=== PATIENT | female | born 1995 | race Caucasian/White ===

== ENCOUNTER 2019-01-13 16:37 | Inpatient (IN) | payer OTHER ==
[~2019-01-13] VITALS: Ht 175.3 cm; Wt 107.0 kg
[~2019-01-13 16:37] MED LIST: PERCOCET 5/3251 TAB PO
[2019-01-13] MEDS ORDERED: PRENATAL TABLE1 EAC1 PO (16:44)
[2019-01-13] MEDS ORDERED: ASA81 MG PO (16:44)
[2019-01-13] MEDS ORDERED: IRON325 MG PO (16:45)
[2019-01-15] MEDS ORDERED: ZITHROMAX500 MG PO (18:58)
== END 2019-01-15 19:06 | disposition home or self-care (01) | DRG 832 ==
LOC: OBS/DEL 16:37 → LDR 18:22
PROVIDERS: ADMIT Obstetrics & Gynecology
PROC: 4A033R1 Measurement of Arterial Saturation, Peripheral, Percutaneous Approach (ICD-10-PCS; principal; 2019-01-13)
PROC: 4A1HXCZ Monitoring of Products of Conception, Cardiac Rate, External Approach (ICD-10-PCS; 2019-01-13)
PROC: BY4FZZZ Ultrasonography of Third Trimester, Single Fetus (ICD-10-PCS; 2019-01-14)
DX: O99.513 Diseases of the respiratory system complicating pregnancy, third trimester (principal); O98.813 Other maternal infectious and parasitic diseases complicating pregnancy, third trimester; O60.03 Preterm labor without delivery, third trimester; B96.0 Mycoplasma pneumoniae [M. pneumoniae] as the cause of diseases classified elsewhere; O26.853 Spotting complicating pregnancy, third trimester; O36.80X1 Pregnancy with inconclusive fetal viability, fetus 1; J06.9 Acute upper respiratory infection, unspecified

== ENCOUNTER 2019-03-05 12:00 | Inpatient (IN) | payer OTHER ==
[~2019-03-05] VITALS: Ht 175.3 cm; Wt 113.4 kg
[~2019-03-05 12:00] MED LIST changes: +ASA81 MG PO; +IRON325 MG PO; +PRENATAL TABLE1 EAC1 PO; +ZITHROMAX500 MG PO
== END 2019-03-08 18:12 | disposition home or self-care (01) | DRG 784 ==
LOC: OB/GYN 12:00 → LDR 12:00 → OB/GYN 18:08
PROVIDERS: ADMIT Obstetrics & Gynecology
PROC: 0UB70ZZ Excision of Bilateral Fallopian Tubes, Open Approach (ICD-10-PCS; 2019-03-05)
PROC: 4A1HXCZ Monitoring of Products of Conception, Cardiac Rate, External Approach (ICD-10-PCS; 2019-03-05)
PROC: 10D00Z1 Extraction of Products of Conception, Low, Open Approach (ICD-10-PCS; principal; 2019-03-05 12:00)
DX: O82 Encounter for cesarean delivery without indication (principal); O34.211 Maternal care for low transverse scar from previous cesarean delivery; O10.913 Unspecified pre-existing hypertension complicating pregnancy, third trimester; O99.213 Obesity complicating pregnancy, third trimester; E66.01 Morbid (severe) obesity due to excess calories; Z22.330 Carrier of Group B streptococcus; Z37.0 Single live birth; Z3A.38 38 weeks gestation of pregnancy; Z30.2 Encounter for sterilization